=== PATIENT | male | born 1950 | race Caucasian/White ===

== ENCOUNTER → 2019-04-08 10:58 | Outpatient (POV) | payer MEDICARE, SELFPAY | PROVIDERS: Visit Provider Dermatology | DX: Z00.00 Encounter for general adult medical examination without abnormal findings (principal) ==

== ENCOUNTER 2024-03-25 17:54 | Emergency (ER) | payer MEDICARE, SELFPAY ==
[2024-03-25 17:59] VITALS: BP 143/69; PULSE 70; RESP 18; TEMP 36.6; O2SAT 98; BMI 29.8
--- NOTE | 2024-03-25 18:02 | ED_ITS ---
<Statement entered by Silvia Guzman DO - 03/25/24 20:23> I was consulted by the ANNY, and we discussed the complexity of the problems being addressed. I approved the treatment and management plan for this patient's care in the emergency department, thus performing a substantive portion of the medical decision making. Silvia Guzman DO Discharge Plan Disposition Patient Disposition: Home, Self-Care Condition: Good Prescriptions Prescriptions: New rqvfuwigtplaitd-zakzsppzq-YE [Bromfed DM] 2-30-10 mg/5 mL syrup 5 ml PO Q4H PRN (Reason: sinus and congestion symptoms) Qty: 118 0RF Referrals Follow up/Referrals: Desire Bloom APRN [Primary Care Provider] - See instructions Activity Restrictions/Add. Instructions Additional Instructions/Restrictions: Continue taking Tylenol Motrin and I have sent Bromfed into your pharmacy. If you continue to have symptoms or have any worsening signs or symptoms follow-up with your PCP or return to the ER as needed Clinical Impressions Clinical Impression: Viral upper respiratory tract infection Print Language Print Language: Greek Discharge ED Provider: Silvia Guzman General Adult HPI <RAMON Dos Santos - Last Filed: 03/25/24 19:41> General Chief complaint: Upper Respiratory Infection Stated complaint: persistant cough covid+7days chest congestion Time Seen by Provider: 03/25/24 18:02 History of Present Illness HPI narrative: Patient presents for evaluation of cough congestion and hoarse voice. Patient was diagnosed with COVID [facility]. He has had persistent upper airway congestion nonproductive cough and reports that his voice going hoarse now. Patient denies however difficulty breathing shortness of breath chest pain fever chills hemoptysis hematochezia melena hematemesis hematuria. Related Data Previous Rx's ?Medication ?Instructions ?Recorded srqrjfpnvqrklio-lpqlktnseegnnmb-ZS 5 ml PO Q4H PRN sinus and 03/25/24 2 mg-30 mg-10 mg/5 mL oral syrup congestion symptoms #118 mL (Bromfed DM) Allergies Allergy/AdvReac Type Severity Reaction Status Date / Time No Known Allergies Allergy Verified 02/04/18 15:24 PFSH <RAMON Dos Santos - Last Filed: 03/25/24 19:41> PFS Disclaimer: The information contained in this section may have been updated after the patient was seen, as this information can be updated by other users. Social History (Updated 03/25/24 @ 19:41 by RAMON Dos Santos) Smoking Status: Never smoker alcohol intake: never current occupational status: retired Travel in the last 8 weeks: None <RAMON Dos Santos - Last Filed: 03/25/24 19:41> ROS Obtained: Yes Systems reviewed as appropriate & no additional complaints except as documented Physical Exam <RAMON Dos Santos - Last Filed: 03/25/24 19:41> General General appearance: alert and in no apparent distress Respiratory Respiratory exam: Present normal lung sounds bilaterally Cardiovascular Cardiovascular exam: Present regular rate Neurological Exam Neurological exam: Present alert and oriented X3 Medical Decision Making <RAMON Dos Santos - Last Filed: 03/25/24 19:41> Medical Records Medical records reviewed: Yes I reviewed the patient's medical records. Screening: Per USPSTF and CDC recommendations, given the prevalence of disease in our region, it is our hospital?s policy to screen for HIV and viral Hepatitis for all patients aged 18 and over and those with ongoing risk factors. Dereck Inquiry Pt receiving controlled substance: No Vital Signs: 03/25/24 17:59 03/25/24 18:31 03/25/24 19:00 Temperature 97.9 F Temperature Source Oral Pulse Rate 64 62 Pulse Rate [Radial] 70 Respiratory Rate 18 Blood Pressure 115/68 113/65 Blood Pressure [Right Arm] 143/69 H Blood Pressure Mean [Right Arm] 93 Blood Pressure Source [Right Arm] Automatic Cuff Blood Pressure Position [Right Arm] Sitting 02 Sat by Pulse Oximetry 98 98 95 Oxygen Delivery Method Room Air 03/25/24 19:30 03/25/24 19:57 Temperature 98.2 F Temperature Source Oral Pulse Rate 58 L 56 L Pulse Rate [Radial] Respiratory Rate 16 Blood Pressure 118/68 118/68 Blood Pressure [Right Arm] Blood Pressure Mean [Right Arm] Blood Pressure Source [Right Arm] Blood Pressure Position [Right Arm] 02 Sat by Pulse Oximetry 95 Oxygen Delivery Method Room Air Orders (Tests/Meds): ORDERS Category Date Time Status Chest XR -- portable [XR chest portable] Stat Exams 03/25/24 18:26 Completed Medical Decision Narrative: In summary patient is a 73-year-old male who presents to the emergency department for evaluation of COVID-positive cough and congestion. Patient is hemodynamically stable upon arrival, afebrile. Physical exam is unremarkable and nonfocal including normal breath sounds no increased work of breathing no accessory muscle use normal heart sounds patient is in normal sinus rhythm and is satting at 100% on room air at the time of my exam. . Differential diagnosis includes expected viral symptoms versus possible early pneumonia whether bacterial or viral etc. initial workup will be conducted with plain film x-ray only as patient has no red flags suggesting clinical decompensation. Initial interventions were considered however patient is hemodynamically stable and not clinically decompensated thus deferred for now. Initial workup reviewed by me and my informal interpretation of his plain film chest x-ray shows no acute pro cesses.. Upon repeat evaluation patient remains normotensive with a regular heart rate satting in 99% on room air. Given this patient reassured and recommended to follow-up with PCP for any worsening signs or symptoms or return to ER as needed. He will be sent a prescription for Bromfed to his pharmacy. Places where you can increase complexity: I informally interpreted the patient's chest x-ray or CT read and is remarkable for... Documenting what the cardiac cath lab manager shows with rate and rhythm Consideration of test but deferring. Ex: I considered chest x-ray on this patient however given that they have no oxygen requirement and are clear to auscultation all lung orosco will be deferred. Social determinants of health: Given that patient is undomiciled increases complexity. Given that patient has polysubstance abuse compounds all aspects of care <Silvia Guzman, DO - Last Filed: 03/25/24 20:23> Vital Signs: 03/25/24 17:59 03/25/24 18:31 03/25/24 19:00 Temperature 97.9 F Temperature Source Oral Pulse Rate 64 62 Pulse Rate [Radial] 70 Respiratory Rate 18 Blood Pressure 115/68 113/65 Blood Pressure [Right Arm] 143/69 H Blood Pressure Mean [Right Arm] 93 Blood Pressure Source [Right Arm] Automatic Cuff Blood Pressure Position [Right Arm] Sitting 02 Sat by Pulse Oximetry 98 98 95 Oxygen Delivery Method Room Air 03/25/24 19:30 03/25/24 19:57 Temperature 98.2 F Temperature Source Oral Pulse Rate 58 L 56 L Pulse Rate [Radial] Respiratory Rate 16 Blood Pressure 118/68 118/68 Blood Pressure [Right Arm] Blood Pressure Mean [Right Arm] Blood Pressure Source [Right Arm] Blood Pressure Position [Right Arm] 02 Sat by Pulse Oximetry 95 Oxygen Delivery Method Room Air Orders (Tests/Meds): ORDERS Category Date Time Status Chest XR -- portable [XR chest portable] Stat Exams 03/25/24 18:26 Completed Medical Decision Narrative: In summary patient is a 73-year-old male who presents to the emergency department for evaluation of COVID-positive cough and congestion. Patient is hemodynamically stable upon arrival, afebrile. Physical exam is unremarkable an d nonfocal including normal breath sounds no increased work of breathing no accessory muscle use normal heart sounds patient is in normal sinus rhythm and is satting at 100% on room air at the time of my exam. . Differential diagnosis includes expected viral symptoms versus possible early pneumonia whether bacterial or viral etc. initial workup will be conducted with plain film x-ray only as patient has no red flags suggesting clinical decompensation. Initial interventions were considered however patient is hemodynamically stable and not clinically decompensated thus deferred for now. Initial workup reviewed by me and my informal interpretation of his plain film chest x-ray shows no acute processes.. Upon repeat evaluation patient remains normotensive with a regular heart rate satting in 99% on room air. Given this patient reassured and recommended to follow-up with PCP for any worsening signs or symptoms or return to ER as needed. He will be sent a prescription for Bromfed to his pharmacy. Critical Care <RAMON Dos Santos - Last Filed: 03/25/24 19:41> Critical Care Time Critical Care Time: No
--- NOTE | 2024-03-25 18:26 | XR_ITS ---
PROCEDURE INFORMATION: Exam: XR Chest Exam date and time: 03/25/2024 6:37 PM Age: 73 years old Clinical indication: Other: Covid-positive, congestion TECHNIQUE: Imaging protocol: Radiologic exam of the chest. Views: 1 view. COMPARISON: No relevant prior studies available. FINDINGS: Lungs: Unremarkable. No consolidation. Pleural spaces: Unremarkable. No pleural effusion. No pneumothorax. Heart/Mediastinum: Unremarkable. No cardiomegaly. Vasculature: Vascular calcifications. Bones/joints: Unremarkable. IMPRESSION: No acute findings.
[2024-03-25 18:31] VITALS: BP 115/68; PULSE 64; O2SAT 98
--- NOTE | 2024-03-25 18:45 | PC.NURSE ---
XR AT BEDSIDE
[2024-03-25 19:00] VITALS: BP 113/65; PULSE 62; O2SAT 95
[2024-03-25 19:30] VITALS: BP 118/68; PULSE 58; O2SAT 95
[2024-03-25 19:57] VITALS: BP 118/68; PULSE 56; RESP 16; TEMP 36.8; O2SAT 98
== END 2024-03-25 19:59 | disposition home or self-care (01) ==
PROVIDERS: Emergency Provider Emergency Medicine; PCP Nurse Practitioner
DX: J06.9 Acute upper respiratory infection, unspecified (principal)
CPT/HCPCS: 71045; 99283

== ENCOUNTER 2024-07-03 15:09 | Outpatient (CLI) | payer MEDICARE, SELFPAY ==
--- NOTE | 2024-07-03 15:10 | CT_ITS ---
FINAL REPORT TECHNIQUE: Thin section axial CT images with coronal and sagittal reformats were performed through the neck. This study was performed with techniques to keep radiation doses as low as reasonably achievable (ALARA). Individualized dose reduction techniques using automated exposure control or adjustment of mA and/or kV according to the patient's size were employed. CLINICAL HISTORY: complaints of throat irritation COMPARISON: None FINDINGS: CT NECK SOFT TISSUE W/O CONTRAST Exam is limited without intravenous contrast. The nasopharynx is unremarkable. There is slight asymmetry of the tonsillar pillars with mild enlargement on the right, favor infectious or inflammatory etiology. There is no large peritonsillar abscess. The epiglottis and larynx are unremarkable. The thyroid and salivary glands are unremarkable. Multiple small submandibular lymph nodes are favored to be reactive. There is no lymphadenopathy. There is a mucous retention cyst or polyp in the floor of the left maxillary sinus, otherwise the visualized paranasal sinuses are without air-fluid levels. The mastoid air cells are clear. There is no acute osseous abnormality. Multilevel degenerative disease of the cervical spine is noted. IMPRESSION: Slight enlargement of the right tonsillar pillar, favor infectious or inflammatory. Likely reactive small submandibular lymph nodes. Reviewed, Interpreted and Dictated by Margie cMrae MD Transcribed by Kathi Lr Authenticated and [facility]
== END 2024-07-03 23:59 | disposition home or self-care (01) ==
LOC: RAD 15:10
PROVIDERS: PCP Nurse Practitioner; Visit Provider Nurse Practitioner
DX: R09.A2 Foreign body sensation, throat (principal)
CPT/HCPCS: 70490

== ENCOUNTER 2024-10-02 08:40 | Day surgery (SDC) | payer MEDICARE, SELFPAY ==
[2024-10-01 14:06] VITALS: BMI 35.2
[2024-10-02 09:13] VITALS: BP 160/61; PULSE 61; RESP 18; TEMP 36.6; O2SAT 96
[2024-10-02] MEDS: LACTATED RINGERS 1000ML 1,000 ML 50 ML IV (09:24)
--- NOTE | 2024-10-02 10:30 | EXP.HP ---
History of Present Illness *Admission Date: 10/02/24 *Reason for visit:: Chronic cough, hoarseness and frequent clearance of throat *History of present illness: Mr. Lawrence is a 74-year-old gentleman with frequent throat clearance, hoarseness and ENT findings suggestive of LPR/silent GERD who is here for diagnostic upper endoscopy. The examination is deemed medically necessary for diagnostic upper endoscopy. The patient has been seen, interviewed and examined prior to the procedure by both myself and the anesthesia provider. [facility] Disclaimer: The information contained in this section may have been updated after the patient was seen, as this information can be updated by other users. Medical History Colonoscopy planned GERD (gastroesophageal reflux disease) Globus sensation High blood pressure History of edema Surgical History [place] teeth removed History of tonsillectomy and adenoidectomy Family History Other No significant family history Social History Smoking Status: Never smoker alcohol intake: never current occupational status: retired Travel in the last 8 weeks?: None Have you lived/traveled outside [place] in past 30 days?: No Contact w/someone who lives/traveled outside US past 30 days?: No Exposure to someone with infectious disease in past 14 days?: No Do you have a fever (greater than 100.4 F or 38 C)?: No Have you tested positive for COVID-19?: No Exposed to someone with COVID-19 in past 14 days?: No Do you have a sore throat?: No Do you have a cough?: No Do you have any weakness?: No Are you experiencing any nausea/vomitting?: No Do you have any diarrhea?: No Are you experiencing any unusual bleeding?: No Do you have any muscle aches/pain?: No Do you have any abdominal pain?: No Are you experiencing loss of taste or smell?: No Other Medical History Have you received the Pneumonia Vaccine: No Review of Systems Review of Systems Review of systems (narrative): Negative *Cardiovascular Comments: Negative *Gastrointestinal Comments: Negative *Genitourinary Comments: Negative *Musculoskeletal Comments: Negative *Neurologic Comments: Negative Meds Home Medications and Allergies Home Medications ?Medication ?Instructions ?Recorded ?Confirmed ?Type aspirin 81 mg tablet,delayed 81 mg PO DAILY 06/17/24 10/02/24 History release (Adult Low Dose Aspirin) glucosamine HCl 750 mg tablet 750 mg PO DAILY 06/17/24 10/02/24 History hydrochlorothiazide 12.5 mg tablet 12.5 mg PO DAILY 06/17/24 10/02/24 History lisinopril 10 mg tablet 10 mg PO DAILY 06/17/24 10/02/24 History omeprazole 40 mg capsule,delayed 40 mg PO DAILY #30 caps 06/17/24 10/02/24 Rx release sildenafil (pulm.hypertension) 20 20 mg PO DAILY 06/17/24 10/02/24 History mg tablet fsnkyjew-fnzucnwc-kcmdi acid 400 1 tab PO DAILY 08/12/24 10/02/24 History mcg-vit K 20 mcg-lycop 300 mcg tablet (One-A-Day Men's Multivitamin) New Prescriptions to Start Prescriptions: Allergies Allergy/AdvReac Type Severity Reaction Status Date / Time No Known Allergies Allergy Verified 10/02/24 09:08 Exam Data for Last 24 hours Vital signs and Labs for Last 24 Hours: Temp Pulse Resp BP Pulse Ox O2 Del Method 97.8 F 61 18 160/61 H 96 Room Air 10/02/24 09:13 10/02/24 09:13 10/02/24 09:13 10/02/24 09:13 10/02/24 09:13 10/02/24 09:13 I & O for Last 24 hours: Intake & Output 09/29/24 09/30/24 10/01/24 10/02/24 23:59 23:59 23:59 23:59 Weight 260 lb *Routine HEENT Exam Head: Present normocephalic Eye: Present EOMI and PERRL ENT: Present mucous membranes moist *Routine Neck Exam Neck: Present supple *Routine Respiratory Exam Respiratory: Present CTA bilaterally *Routine Cardiovascular Exam Cardiovascular: Present RRR *Routine Abdominal Exam Abdominal: Present soft and normoactive bowel sounds; Absent tenderness *Routine Rectal Exam Rectal:: deferred *Routine Genitalia Exam Genitalia:: deferred *Routine Extremities Exam Extremities: Absent cyanosis, clubbing or edema *Routine Skin Exam Skin: Present warm; Absent rash *Routine Neurological Exam Neurological: Present alert and oriented X3 Assessment and Plan *Assessment and plan (1) Chronic cough: Status: Acute Category: Medical Code(s): R05.3 - Chronic cough (2) Hoarseness: Status: Acute Category: Medical Code(s): R49.0 - Dysphonia (3) Throat clearing: Status: Acute Category: Medical Code(s): R09.89 - Other specified symptoms and signs involving the circulatory and respiratory systems (4) GERD (gastroesophageal reflux disease): Status: Acute Qualifiers: Esophagitis presence: with esophagitis Esophagitis bleeding: without hemorrhage Qualified Code(s): K21.00 - Gastro-esophageal reflux disease with esophagitis, without bleeding Category: Medical Code(s): K21.9 - Gastro-esophageal reflux disease without esophagitis (5) Globus sensation: Status: Acute Category: Medical Code(s): R09.A2 - Foreign body sensation, throat Plan A/P: 1. Silent GERD/LPR (laryngal pharyngeal reflux) with chronic cough, hoarseness, throat clearing and globus sensation is the preprocedural diagnosis. The patient will be anesthetized/sedated using MAC sedation. The patient has been seen and examined. Cardiac and lung assessment prior to the examination is stable. Proceed with planned diagnostic EGD.
--- NOTE | 2024-10-02 10:56 | HMH.PROCNOTE ---
[facility] Procedure Note Date: 10/02/24 Time: 10:56 Procedure Note:: Upper Endoscopy Procedure Report: Esophagogastroduodenoscopy with cold biopsies and TTS balloon dilation Endoscopost: Sharad Kitchen II, MD Referring Physician: Desire AVILES Date of Procedure: October 02, 2024 Equipment: Olympus GIF 190 standard upper endoscope Sedation: MAC sedation Indications: Mr. Lawrence is a 74-year-old gentleman who has had a chronic cough for several years. He reports hoarseness and a tickling in his throat. 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 He did get COVID in March and had laryngitis for several weeks. Since then his symptoms have worsened with a persistent cough and hoarseness. He does have frequent clearance of the throat. He reports no dysphagia, heartburn, reflux or globus sensation. He does have some moderate belching and gassiness with little bloating. He reports regular bowel function. He has had no nausea, epigastric discomfort, dyspepsia or early satiety. He was seen by ENT and had CT of the neck with slight enlargement of the right tonsillar pillar and his laryngoscope showed erythema possibly consistent with LPR (laryngal pharyngeal reflux). EGD is performed for further evaluation and this is his first upper endoscopy. Procedure: Prior to the procedure, a history and physical exam was performed, and patient's medications and allergies were reviewed. The risks, benefits and alternatives of the sedation and procedure were discussed with the patient. All questions were answered and informed consent was obtained. The patient was brought to the procedure room. Patient identification and proposed procedure were verified by the physician and the nurse. The patient was placed in a left lateral decubitus position and the scope was passed under direct vision. Throughout the procedure, the patient's blood pressure, pulse, and oxygen saturations were monitored continuously. The upper GI endoscopy was accomplished without difficulty. The patient tolerated the procedure well. Findings: The scope was passed directly into the upper esophagus and advanced to the third portion of the duodenum. The post bulbar duodenum and duodenal bulb were normal with normal mucosa and conniventes. The scope was withdrawn through a normal duodenal bulb and pylorus into the stomach. There was some bile reflux with mild antral linear reactive gastropathy. Cold biopsies were taken from the antrum. The body and fundus of the stomach were normal. Upon retroflexion there was no hiatal hernia. The scope was then withdrawn into the esophagus. There was no evidence of reflux esophagitis or Avila's. There was no corrugation, furrowing or strictures. There was no proximal esophageal inlet patch. There were tertiary contractions and evidence of mild esophageal dysmotility. The entire esophagus was dilated to 60 [place]/20 mm with a TTS hydrostatic balloon. There was some resistance at the cricopharyngeus. The remainder of the esophageal mucosa was normal. Impression: 1. Cricopharyngeal spasm status post dilation to 20 mm 2. Nonerosive GERD with mild esophageal dysmotility 3. Bile reflux with mild linear reactive gastropathy of antrum Plan: I will follow-up the biopsies. This may be functional GERD causing his cough. I would also consider this to be a neurogenic cough. We will try some additional measures for gas driven reflux to see if that helps.
[2024-10-02 11:01] VITALS: BP 96/87; PULSE 80; RESP 16; TEMP 36.3; O2SAT 91
[2024-10-02 11:11] VITALS: BP 92/62; PULSE 60; RESP 16; TEMP 36.3; O2SAT 96
[2024-10-02 11:21] VITALS: BP 113/71; PULSE 65; RESP 16; TEMP 36.3; O2SAT 96
[2024-10-02 11:32] VITALS: BP 120/81; PULSE 62; RESP 16; TEMP 36.3; O2SAT 98
== END 2024-10-02 11:32 | disposition home or self-care (01) ==
PROVIDERS: PCP Nurse Practitioner; Visit Provider Internal Medicine Gastroenterology
PROC: 0DJ08ZZ Inspection of Upper Intestinal Tract, Via Natural or Artificial Opening Endoscopic (ICD-10-PCS; CPT 43239; principal; 2024-10-02 10:30)
DX: R05.3 Chronic cough (principal); R49.0 Dysphonia; R09.89 Other specified symptoms and signs involving the circulatory and respiratory systems; K21.00 Gastro-esophageal reflux disease with esophagitis, without bleeding; R09.A2 Foreign body sensation, throat; K31.9 Disease of stomach and duodenum, unspecified; K21.9 Gastro-esophageal reflux disease without esophagitis; K22.4 Dyskinesia of esophagus; J39.2 Other diseases of pharynx
CPT/HCPCS: 43239; 43249; C1726; J7120